=== PATIENT | female | born 1930 | race Caucasian/White ===

== ENCOUNTER 2016-09-12 18:17 | Inpatient (IN) | payer OTHER ==
--- NOTE | ~2016-09-12 | CR126 ---
[facility] A Service of [facility] RADIOLOGY TEXT RESULTS PATIENT: LETITIA CHAMORRO LOCATION: [facility] 303- : 30 UNIT #: [id number] AGE: [address]: Wiliam Rowland MD SEX: F ORDER DR: [id number] [facility] [address]. [place], [place] [address] [id number] I MR#: [id number] Acc #: [id number] NAME: LETITIA CHAMORRO : 1930 SEX: F STUDY DATE/TIME: 09/20/2016 19:23 UNIT: [address] ROOM: [facility] STUDY DESCRIPTION: CR Foot Complete Min 3 View Lt Attending Physician: Wiliam Rowland M.D. Ordering Physician: Wiliam Rowland M.D. Primary Care Physician: Amanda Llanes M.D. MEDICAL IMAGING REPORT This report is preliminary unless electronic signature is present EXAM Left foot 3 views HISTORY Foot pain after fall 3 days ago. FINDINGS 3 views of the left foot demonstrate a 1 cm linear bone fragment along the dorsal margin of the navicular seen on the lateral view, likely a cortical avulsion fracture. This is of uncertain age and could be recent and correlation with patient's symptoms in this location is recommended. No additional fracture. Mild degenerative changes at the first MTP joint. Mild generalized demineralization. Dictated by... Raul Sargent M.D. THIS IS AN ELECTRONICALLY VERIFIED REPORT Raul Sargent M.D. at 09/20/2016 10:48 PM DFL/pcl TD: 09/20/2016 21:40 JOB #: [id number] MEDICAL IMAGING REPORT Page 1 of 1 COPY
--- NOTE | ~2016-09-12 | CR72 ---
[facility] A Service of [facility] RADIOLOGY TEXT RESULTS PATIENT: LETITIA CHAMORRO LOCATION: [facility] 303- : 30 UNIT #: [id number] AGE: [address]: Wiliam Rowland MD SEX: F ORDER DR: [id number] [facility] [address]. [place], [place] [address] [id number] I MR#: [id number] Acc #: [id number] NAME: LETITIA CHAMORRO : 1930 SEX: F STUDY DATE/TIME: 09/14/2016 13:08 UNIT: [address] ROOM: [facility] STUDY DESCRIPTION: CR Chest Single View Portable Attending Physician: Wiliam Rowland M.D. Ordering Physician: Wiliam Rowland M.D. Primary Care Physician: Amanda Llanes M.D. MEDICAL IMAGING REPORT This report is preliminary unless electronic signature is present EXAM Chest, portable, 09/14/2016, 1308 hours. CLINICAL HISTORY 86-year-old woman with shortness of air and difficulty breathing for 2 days. History of CHF. COMPARISON 09/12/2016 FINDINGS Portable upright chest demonstrates stable cardiomegaly and pacer device. There is pulmonary venous distension and hazy opacity in the right hemithorax which I believe is related to posterior layering pleural fluid. Interstitial change in the left lung appears improved. There is minimal blunting of the left costophrenic sulcus unchanged. IMPRESSION 1. Stable cardiomegaly and pacer device. 2. There is mild pulmonary venous distension with overall decrease in perihilar interstitial change. There is moderate-sized right pleural effusion, likely unchanged when allowing for differences in positioning. There is trace blunting of the left costophrenic sulcus unchanged. Dictated by... Radha Polo M.D. THIS IS AN ELECTRONICALLY VERIFIED REPORT Radha Polo M.D. at 09/17/2016 9:23 AM SMM/tmw [facility] A Service of [facility] RADIOLOGY TEXT RESULTS PATIENT: LETITIA CHAMORRO LOCATION: [facility] 303-01 : 30 UNIT #: [id number] AGE: [address]: Wiliam Rowland MD SEX: F ORDER DR: TD: 09/14/2016 15:26 JOB #: [id number] MEDICAL IMAGING REPORT Page 1 of 1 COPY
--- NOTE | ~2016-09-12 | CR127 ---
[facility] A Service of [facility] RADIOLOGY TEXT RESULTS PATIENT: LETITIA CHAMORRO LOCATION: [facility] 303- : 30 UNIT #: [id number] AGE: [address]: Wiliam Rowland MD SEX: F ORDER DR: [id number] [facility] [address] [facility]. [place], [place] [address] [id number] I MR#: [id number] Acc #: [id number] NAME: LETITIA CHAMORRO : 1930 SEX: F STUDY DATE/TIME: 09/20/2016 19:22 UNIT: [address] ROOM: [facility] STUDY DESCRIPTION: CR Foot Complete Min 3 View Rt Attending Physician: Wiliam Rowland M.D. Ordering Physician: Wiliam Rowland M.D. Primary Care Physician: Amanda Llanes M.D. MEDICAL IMAGING REPORT This report is preliminary unless electronic signature is present EXAM Right foot, 3 views. HISTORY Bilateral foot pain after fall, 3 days ago. FINDINGS 3 views of the right foot demonstrate old healed fracture, midshaft fifth metatarsal. Probable additional old healed fractures at the neck of the third and fourth metatarsals. Mild generalized demineralization. No acute fracture. No dislocation. Small posterior and plantar calcaneal spurs. IMPRESSION 1. No acute findings. 2. Old healed fracture midshaft fifth metatarsal and probable subtle old healed fractures at the neck of the third and fourth metatarsals. Dictated by... Raul Sargent M.D. THIS IS AN ELECTRONICALLY VERIFIED REPORT Raul Sargent M.D. at 09/20/2016 10:48 PM ALISON/sandra TD: 09/20/2016 21:45 JOB #: [id number] MEDICAL IMAGING REPORT Page 1 of 1 COPY
--- NOTE | ~2016-09-12 | EKG ---
PATIENT: LETITIA CHAMORRO UNIT #: [id number] Ventricular Rate: 70 BPM Atrial Rate: 70 BPM QRS Duration: 148 ms Q-T Interval: 432 ms QTC Calculation(Bezet): 466 ms Calculated R [place]: -99 degrees Calculated T [place]: 76 degrees Diagnosis Line: Ventricular-paced rhythm Diagnosis Line: Abnormal ECG Diagnosis Line: When compared with ECG of 07-MAR-2015 19:56, Diagnosis Line: Vent. rate has increased BY 15 BPM Diagnosis Line: Confirmed by FIDELIA GAUTHIER MD ([id number]) on 09/13/2016 Diagnosis Line: 10:39:18 AM INTERPRETING MD: ABRAHAN NÚÑEZ
--- NOTE | ~2016-09-12 | DS ---
Unit #: [id number] #: [id number] Patient: LETITIA CHAMORRO [id number] [address] [address] [id number] I MR#: [id number] NAME: LETITIA CHAMORRO ROOM: 303 Age: 86 Sex: F Admission Date: 09/12/2016 : 1930 Discharge Date: Attending Physician: Wiliam Rowland M.D. Primary Care Physician: Amanda Llanes M.D. DISCHARGE SUMMARY SECOND ADDENDUM DISCHARGE MEDICATION RECONCILIATION 1. DuoNeb q.4 h. p.r.n. 2. Magnesium oxide 400 mg p.o. daily. 3. Coumadin 4 mg p.o. daily. 4. Loratadine 10 mg p.o. daily. 5. Lipitor 20 mg p.o. daily. 6. Norvasc 5 mg p.o. daily. 7. Metoprolol 25 mg p.o. b.i.d. 8. Docusate 100 mg p.o. b.i.d. 9. Lasix 40 mg p.o. b.i.d. 10. Lipitor 20 mg p.o. daily. 11. Protonix 40 mg p.o. daily. 12. Glimepiride 2 mg p.o. daily. 13. Tylenol 650 q.6 h. p.r.n. Dictated by... Tyra Sam/natividad TD: 09/25/2016 17:38 JOB #: [id number] DISCHARGE SUMMARY Page 1 of 1 X Wiliam Rowland MD X DISCHARGE SUMMARY
--- NOTE | ~2016-09-12 | CR72 ---
[facility] A Service of [facility] RADIOLOGY TEXT RESULTS PATIENT: LETITIA CHAMORRO LOCATION: [facility] [id number] : 30 UNIT #: [id number] AGE: [address]: Wiliam Rowland MD SEX: F ORDER DR: [id number] [facility] [address] [place], [place] [address] [id number] E MR#: [id number] Acc #: [id number] NAME: LETITIA CHAMORRO : 1930 SEX: F STUDY DATE/TIME: 09/12/2016 19:40 UNIT: [facility] ROOM: STUDY DESCRIPTION: CR Chest Single View Portable Attending Physician: Davidson Aguilar D.O. Ordering Physician: Ed Jean-Claude He M.D. Primary Care Physician: Amanda Llanes M.D. MEDICAL IMAGING REPORT This report is preliminary unless electronic signature is present EXAM Single view chest. INDICATIONS Shortness of air for 2 weeks. FINDINGS Single portable AP view of the chest compared to 03/09/2015. Heart and mediastinal contours are unchanged. There is mild interstitial edema. A fazvwoca-vq-hdekp right pleural effusion has developed. There is a small left pleural effusion which is unchanged. No pneumothorax. IMPRESSION 1. Moderate interstitial edema. 2. Development of a moderate to large right pleural effusion. 3. Decreased size of a small left pleural effusion. Dictated by... Ayad Burt M.D. THIS IS AN ELECTRONICALLY VERIFIED REPORT Ayad Burt M.D. at 09/12/2016 9:47 PM ALANNA/sandra TD: 09/12/2016 20:55 JOB #: [id number] MEDICAL IMAGING REPORT Page 1 of 1 COPY
--- NOTE | ~2016-09-12 | HP ---
Unit #: [id number] #: [id number] Patient: LETITIA CHAMORRO [id number] [address] [address] [id number] I MR#: [id number] NAME: LETITIA CHAMORRO ROOM: 303 Age: 86 Sex: F Admission Date: 09/12/2016 : 1930 Attending Physician: Wiliam Rowland M.D. Primary Care Physician: Amanda Llanes M.D. HISTORY AND PHYSICAL REASON FOR ADMISSION Shortness of breath. HISTORY OF PRESENT ILLNESS This is a very pleasant 86-year-old female with past medical history significant for chronic atrial fibrillation, chronic kidney disease and COPD, who presented to the emergency room with a few days history of progressive shortness of breath. The patient stated that she lives at home by herself and she is very independent. She drives still and she does not use any assistance when walking. For the last few weeks, she has been getting progressive shortness of breath but much so over the last few days. She denies any fever, chills, or night sweats. No productive cough of any colorful sputum. She denies any chest pain, nausea, vomiting or diarrhea. She stated that she is on diuretics at home and she is compliant. However, I am not sure if she is very compliant with her diet. The patient follows with Dr. Mendoza with cardiology as an outpatient. PAST MEDICAL HISTORY 1. Chronic atrial fibrillation. 2. Sick sinus syndrome. 3. Chronic kidney disease. 4. Obstructive sleep apnea, intolerance of CPAP. 5. Asthma. 6. Diabetes. 7. Hypertension. 8. Degenerative joint disease. PAST SURGICAL HISTORY 1. Open reduction internal fixation of the left radius after a fall. 2. Permanent pacemaker placement. HOME MEDICATIONS 1. Coumadin. 2. Norvasc. 3. Amaryl. 4. Claritin. 5. Zestril. 6. Atorvastatin. 7. Vitamin. 8. Metoprolol. Unit #: [id number] #: [id number] Patient: LETITIA CHAMORRO 9. Bumex. ALLERGIES 1. Codeine. 2. NSAIDs. SOCIAL HISTORY No history of alcohol, drug abuse or smoking. Again, she lives independent. FAMILY HISTORY None. REVIEW OF SYSTEMS Twelve points review of systems were obtained and were negative except for what was mentioned in the HPI. PHYSICAL EXAMINATION VITAL SIGNS: Temperature 98.1, respiratory rate 16, O2 saturation 96%. GENERAL: The patient is well developed in no acute distress. LUNGS: Decreased breath sounds bilaterally, mainly at the bases. HEART: S1, S2. Irregular rhythm. ABDOMEN: Soft, nontender. Bowel sounds positive. No hepatosplenomegaly. EXTREMITIES: +1 edema in the lower extremities. NEUROLOGIC: The patient is awake, alert, oriented x3. No focal motor/sensory deficit. SKIN: No rashes. DIAGNOSTIC STUDIES LABORATORY: Creatinine 1.4, potassium 1.5. IMAGING: Chest x-ray is consistent with pulmonary edema. ASSESSMENT 1. Acute hypoxic respiratory failure. 2. Cyvmq-gc-jbqaeyx diastolic congestive heart failure exacerbation. 3. Yrn-AJ-zprprklqu myocardial infarction. 4. Diabetes. 5. Morbid obesity. 6. Diabetes. PLAN 1. Patient's oxygen will be titrated down as tolerated to baseline which is room air. 2. Will continue IV Lasix per Cardiology but will monitor urine output very closely given her age. 3. Will continue physical therapy. Will add bronchodilator and mucolytics. 4. DVT prophylaxis. Unit #: [id number] #: [id number] Patient: LETITIA CHAMORRO Dictated by Micah Pantoja M.D. EA/bhaskar TD: 09/13/2016 16:30 JOB #: [id number] HISTORY AND PHYSICAL Page 1 of 1 X MICAH MCCOY MD X HISTORY AND PHYSICAL
--- NOTE | ~2016-09-12 | CR72 ---
[facility] A Service of [facility] RADIOLOGY TEXT RESULTS PATIENT: LETITIA CHAMORRO LOCATION: [facility] 303- : 30 UNIT #: [id number] AGE: [address]: Wiliam Rowland MD SEX: F ORDER DR: [id number] [facility] [address] [facility]. [place], [place] [address] [id number] I MR#: [id number] Acc #: [id number] NAME: LETITIA CHAMORRO : 1930 SEX: F STUDY DATE/TIME: 09/16/2016 16:42 UNIT: [address] ROOM: [facility] STUDY DESCRIPTION: CR Chest Single View Portable Attending Physician: Wiliam Rowland M.D. Ordering Physician: Wiliam Rowland M.D. Primary Care Physician: Amanda Llanes M.D. MEDICAL IMAGING REPORT This report is preliminary unless electronic signature is present EXAM Portable chest HISTORY Shortness of air, CHF, difficulty breathing for 4 days. FINDINGS Compared to 09/14/2016, mild vascular congestion has decreased and there has been partial clearing of the right mid and lower lung. Persistent small bilateral pleural effusions and persistent mild atelectasis in both bases. There has also been partial clearing of the right lung base. No new infiltrates. Dictated by... Raul Sargent M.D. THIS IS AN ELECTRONICALLY VERIFIED REPORT Raul Sargent M.D. at 09/16/2016 10:24 PM DFL/psc TD: 09/16/2016 19:05 JOB #: [id number] MEDICAL IMAGING REPORT Page 1 of 1 COPY
--- NOTE | ~2016-09-12 | CR63 ---
[facility] A Service of [facility] RADIOLOGY TEXT RESULTS PATIENT: LETITIA CHAMORRO LOCATION: [facility] : 30 UNIT #: [id number] AGE: [address]: Wiliam Rowland MD SEX: F ORDER DR: [id number] [facility] [address] [facility]. [place], [place] [address] [id number] I MR#: [id number] Acc #: [id number] NAME: LETITIA CHAMORRO : 1930 SEX: F STUDY DATE/TIME: 09/21/2016 11:21 [facility] STUDY DESCRIPTION: CR Chest 2 View Attending Physician: Wiliam Rowland M.D. Ordering Physician: Jaskaran Coy M.D. Primary Care Physician: Amanda Llanes M.D. MEDICAL IMAGING REPORT This report is preliminary unless electronic signature is present EXAM 2 views chest, 09/21/16. HISTORY Short of air. Began Saturday. Short of air with CHF. REPORT PA and lateral radiographs of the chest are presented. COMPARISON 09/16/16. FINDINGS Pacemaker unchanged. Stable cardiac enlargement. Worsening pulmonary vascular congestion. Increasing interstitial and airspace densities in the bilateral mid to lower lung zones. Xojjn-ex-hfgvaquj bilateral pleural effusions increased from prior study. Appearance most consistent with worsening cardiogenic pulmonary edema with interstitial airspace and pleural space components. No pneumothorax. No acute-appearing bony abnormality. Dictated by... Jim Guerrero M.D. THIS IS AN ELECTRONICALLY VERIFIED REPORT Jim Guerrero M.D. at 09/25/2016 4:56 PM ANGELICA/sandra TD: 09/21/2016 16:07 JOB #: [id number] [facility] A Service of [facility] RADIOLOGY TEXT RESULTS PATIENT: LETITIA CHAMORRO LOCATION: [facility] : 30 UNIT #: [id number] AGE: [address]: Wiliam Rowland MD SEX: F ORDER DR: MEDICAL IMAGING REPORT Page 1 of 1 COPY
--- NOTE | ~2016-09-12 | DS ---
Unit #: [id number] #: [id number] Patient: LETITIA CHAMORRO [id number] [address] [address] [id number] [place] MR#: [id number] NAME: LETITIA CHAMORRO ROOM: 303 Age: 86 Sex: F Admission Date: 09/12/2016 : 1930 Discharge Date: Attending Physician: Wiliam Rowland M.D. Primary Care Physician: Amanda Llanes M.D. DISCHARGE SUMMARY DISCHARGE DIAGNOSES 1. Chronic obstructive pulmonary disease exacerbation. 2. Congestive heart failure exacerbation. 3. Transudative pleural effusion, status post thoracentesis. 4. Chronic kidney disease likely. 5. Sick sinus syndrome. 6. Chronic atrial fibrillation. 7. Obstructive sleep apnea. 8. Diabetes mellitus. 9. Hypertension. HISTORY/HOSPITAL COURSE Patient was admitted with COPD and CHF exacerbation. Thoracentesis was done. She has been doing well and will be discharged to rehab. I saw her this morning. She denied any headache or blurry vision and no chest pain. PHYSICAL EXAMINATION VITAL SIGNS: Temperature 98, pulse 87, respirations 12, and blood pressure 138/68. NEUROLOGICAL: Awake, alert, and oriented, with no neurological deficits. HEENT: Pupils equal, round, and reactive to light and accommodation. Extraocular movements are intact. NECK: Supple. No JVD. CHEST: Bilateral air entry, bilateral mild rhonchi. GASTROINTESTINAL: Nontender and soft. Bowel sounds positive. EXTREMITIES: No edema. SKIN: No rashes and no ulcers. LYMPHATICS: No lymphadenopathy. DIAGNOSTIC STUDIES LABORATORY: Reviewed. IMAGING: Reviewed. DISCHARGE MEDICATIONS As per medication reconciliation. FOLLOWUP With me in two weeks in the office. CONDITION ON DISCHARGE Patient is hemodynamically stable at time of discharge. Dictated by... Unit #: [id number] #: [id number] Patient: LETITIA CHAMORRO Tyra Sam/jose TD: 09/18/2016 14:55 JOB #: [id number] DISCHARGE SUMMARY Page 1 of 1 X Wiliam Rowland MD X DISCHARGE SUMMARY
--- NOTE | ~2016-09-12 | DS ---
Unit #: [id number] #: [id number] Patient: LETITIA CHAMORRO [id number] [address] [address] [id number] I MR#: [id number] NAME: LETITIA CHAMORRO ROOM: 303 Age: 86 Sex: F Admission Date: 09/12/2016 : 1930 Discharge Date: Attending Physician: Wiliam Rowland M.D. Primary Care Physician: Amanda Llanes M.D. DISCHARGE SUMMARY ADDENDUM This is an addendum to already dictated discharge summary. The job number for the previous discharge summary is [id number]. Patient is currently being discharged with COPD exacerbation, CHF exacerbation and had foot fracture and has been stable during the hospital stay; will be discharged to Rehab and follow with Orthopedics, follow with Cardiology. Follow with me in two weeks in the office. Dictated by... Tyra Sam/natividad TD: 09/25/2016 16:33 JOB #: [id number] DISCHARGE SUMMARY Page 1 of 1 X Wiliam Rowland MD X DISCHARGE SUMMARY
--- NOTE | ~2016-09-12 | CO ---
Unit #: [id number] #: [id number] Patient: LETITIA CHAMORRO [id number] [address] [address] [id number] I MR#: [id number] NAME: LETITIA CHAMORRO ROOM: 303 Age: 86 Sex: F Admission Date: 09/12/2016 : 1930 Attending Physician: Wiliam Rowland M.D. Primary Care Physician: Amanda Llanes M.D. CONSULTATION REPORT CHIEF COMPLAINT Bilateral foot pain. HISTORY OF PRESENT ILLNESS Ms. Chamorro is an 86-year-old female, who has been admitted to the hospital on 09/13/2016 for shortness of breath. She sustained a fall in her hospital room approximately 3 days ago. She has been complaining of progressive bruising and pain in the bilateral feet with her ability to ambulate well independently. Orthopedic consultation has been requested for further evaluation. X-rays are available for review. The patient is seen lying comfortably in her hospital bed. She is complaining of pain in both feet, left greater than right. She states that she has pain with push-off essentially with ambulation. She believes when she fell, she struck her toes against the wall. PAST MEDICAL HISTORY 1. Atrial fibrillation. 2. Sick sinus syndrome. 3. Chronic renal insufficiency. 4. Sleep apnea. 5. Asthma. 6. Diabetes. 7. Hypertension. PAST SURGICAL HISTORY 1. ORIF of left distal radius fracture. 2. Pacemaker placement. MEDICATIONS Coumadin, Norvasc, Amaryl, Claritin, Zestril, atorvastatin, multivitamin, metoprolol, Bumex. ALLERGIES Codeine and NSAIDs. SOCIAL HISTORY The patient has no alcohol, tobacco, or drug use. She lives independently. FAMILY HISTORY Noncontributory to current illness. REVIEW OF SYSTEMS Ten systems are reviewed and positive for musculoskeletal complaints in Unit #: [id number] #: [id number] Patient: LETITIA CHAMORRO the toes and otherwise negative except for history shortness of breath improved throughout this hospitalization. PHYSICAL EXAMINATION GENERAL APPEARANCE: Age-appropriate appearing female, in no acute distress or discomfort. PSYCHIATRIC: Awake, alert, and oriented to person, place, time, and situation. CARDIAC: Irregularly irregular rhythm. PULMONARY: No increased work of breathing, symmetric chest rise. ABDOMEN: Nondistended. NEUROLOGIC: Intact sensation and motor function of both feet L4 through S1. SKIN: She has bruising notably over the fifth toe on the right and the great toe and fifth toe on the left. No evidence of open injury or laceration. VASCULAR: The bilateral feet are warm and well perfused with brisk capillary refill. MUSCULOSKELETAL: She is minimally tender over the dorsum of the midfoot on the left, not so on the right. She has tenderness over the areas of contusion at the digits. She has intact range of motion at the toes and ankle. LYMPHATICS: There is no lymphedema or lymphadenopathy. DIAGNOSTIC STUDIES IMAGING STUDIES: Plain film radiographs reviewed of the bilateral feet. These revealed possible avulsion fracture of the dorsum of the midfoot on the left. There is no evidence of any fracture of the phalanges or metatarsals. IMPRESSION An 86-year-old female with contusions to multiple digits in the bilateral feet after a fall. There is no evidence of fracture at the toes including the phalanges or metatarsals. There is a possible avulsion fracture in the mid foot on the left. PLAN She may weight bear as tolerated on bilateral lower extremities. She will be given order for postop shoe to see if this provides her any increased comfort as majority of her pain is with toe extension and during push-off. She may be ambulatory without the postop shoes, if she so chooses. She may be up as tolerated with physical therapy. Dictated by... Jordan Jones M.D. LON/lydia TD: 09/22/2016 14:26 JOB #: [id number] Unit #: [id number] #: [id number] Patient: LETITIA CHAMORRO CONSULTATION REPORT Page 1 of 1 X Jordan Jones MD CONSULTATION REPORT
--- NOTE | ~2016-09-12 | CO ---
Unit #: [id number] #: [id number] Patient: LETITIA CHAMORRO [id number] [address] [address] [id number] I MR#: [id number] NAME: LETITIA CHAMORRO ROOM: 303 Age: 86 Sex: F Admission Date: 09/12/2016 : 1930 Attending Physician: Wiliam Rowland M.D. Primary Care Physician: Amanda Llanes M.D. CONSULTATION REPORT SERVICE [facility]. CHIEF COMPLAINT Shortness of air. HISTORY OF PRESENT ILLNESS Ms. Chamorro is an 86-year-old white female who presents with complaints of a two week history of shortness of air. It has progressively worsened over the last two weeks. She is short of breath at rest and severely short of air with activity. Positive for dyspnea on exertion. She states just walking to the bathroom has become too much work. Although she denies orthopnea, she states that sometimes laying down actually helps it but then sometimes she has to sit up. Positive for edema. She states she has had lower extremity edema and noticing facial edema. She has been using what appears to be multidose inhalers and maybe a breathing machine, although it is kind of difficult to figure out what she is describing. No fevers. No chills. No productive cough. PAST MEDICAL HISTORY 1. Chronic atrial fibrillation. 2. Sick sinus syndrome with permanent pacemaker. 3. Chronic kidney disease. 4. Obstructive sleep apnea, intolerant to CPAP. 5. Asthma. 6. Diabetes mellitus. 7. Hypertension. 8. Degenerative joint disease. 9. Pneumonia in 2015. 10. CT in 2015 showed old lacunar infarcts. 11. Schatzki ring dilatation. PAST SURGICAL HISTORY 1. Open reduction fixation of the left radius after a fall. 2. Permanent pacemaker. SOCIAL HISTORY No tobacco. No alcohol. No drugs. The patient lives alone in a house. She is . She states she has one son left living and one grandson (1) . The patient states that she is on a waiting list for an elderly living arrangement and wants to sell her house. FAMILY HISTORY Unit #: [id number] #: [id number] Patient: ASHTYN,LETITIA Her mother at the age of 47 in an accident. Father was killed in the coal mines at age 21. Brother at six months of age from pneumonia. Her at the age of 47 from a [place]. She had two children. One is . ALLERGIES Codeine and NSAIDs. Codeine causes nausea. Also has listed aspirin and then adverse reaction to prednisone. HOME MEDICATION 1. Coumadin 4 mg daily. 2. Norvasc half a tab daily. 3. Amaryl 2 mg daily. 4. Claritin 10 mg daily. 5. Zestril half tab daily. 6. Atorvastatin 20 mg daily. 7. Vitamin D 50,000 units weekly. 8. Metoprolol 25 mg twice daily. 9. Bumex 1 mg twice daily. Historically in review of records, her Zestril dose was 40 mg and her Norvasc dose was 5 mg. REVIEW OF SYSTEMS Negative for fever. Negative for chills. SKIN: No rash, ulcers or wounds. HEAD: No headache. EYES: No vision changes. EARS: No hearing changes. Positive for hay fever symptoms. Positive for shortness of air and dyspnea on exertion. No chest pain. Positive for complaints of edema. No hematuria. No dysuria. No melena. No bright red bleeding per rectum. NEUROLOGIC: No seizures. No dizziness. No recent falls. PHYSICAL EXAMINATION GENERAL APPEARANCE: Well-developed, well-nourished, elderly white female in bed in no acute distress. VITAL SIGNS: Temp 98.2. Pulse 70. Respiration 16. Blood pressure 133/46. Height 5'1". Weight 91 kg. HEENT: Normocephalic, atraumatic. No xanthelasma. Pupils equal, round and reactive to light. Extraocular movements intact. Jugular mildly full. CVP 7 to 8. LUNGS: Crackles in the right base. Inspiratory wheeze in the left base, anteriorly clear. CARDIOVASCULAR: S1, S2. No S3, S4. A 2/6 holosystolic murmur. No lift. PMI nondisplaced. ABDOMEN: Obese, soft, nontender, nondistended. GENITOURINARY: Arellano cath to bedside drainage with strong urine output. EXTREMITIES: No clubbing, cyanosis or edema, 2+ pulses bilaterally. NEUROLOGIC: Speech is clear and appropriate. No facial drooping. DIAGNOSTIC STUDIES LABORATORY: Sodium 138, potassium 5.0, chloride 108, CO2 26, BUN 39, creatinine 1.4, glucose 128, AST 27, ALT 35, total protein 7.2, albumin 3.5. Troponin 0.05, 0.05. BNP 1,025. PT 25.2, INR 2.3, PTT 35.6. Point Unit #: [id number] #: [id number] [facility] troponin less than 0.05. Hemoglobin 9.4, hematocrit 30.7, WBC count 7.8, platelet count 240. IMAGING: Chest x-ray: Moderate interstitial edema, development of a moderate to large right pleural effusion. Decreased size of small left pleural effusion. CARDIOVASCULAR: A 12-lead EKG shows ventricularly paced rhythm at 70. Monitor remains paced. ASSESSMENT 1. Acute congestive heart failure with moderate to large right pleural effusion. History of 2-D echocardiogram, 02/27/2015, with EF 50 to 55%, pseudonormalization, right atrium mild to moderately dilated, mild mitral regurgitation as well as moderate tricuspid regurgitation. We will obtain a repeat echocardiogram. Troponin is negative x3. 2. Anemia. 3. Chronic AFib with paced rhythm, therapeutic INR. 4. Chronic kidney disease. 5. Obstructive sleep apnea, intolerant to CPAP. 6. Diabetes. 7. Hypertension. 8. Degenerative joint disease. PLAN We will add Lasix 40 mg IV daily and continue to follow. Dr. Jo to follow for any further recommendations. Dictated by... Oscar BritoPFranciaRArabella. for Shravan Jo M.D. MAXINE/payton TD: 09/13/2016 10:18 JOB #: [id number] CONSULTATION REPORT Page 1 of 1 X X CONSULTATION REPORT
[~2016-09-12 18:17] MED LIST: ACETAMINOPHEN PO; ACTOS; ADVAIR 1001 DISK W/D; ALBUTEROL SULF8.5 G1 IH; ALBUTEROL17 GM; AMARYL PO; AMLODIPINE; AMLODIPINE BESYL5 MG PO; AMLODIPINE PO; CALCIUM + VITAM1 TAB PO; CARVEDILOL6.25 MG PO; CENTRUM SILVER PO; CLARITIN10 M3 PO; COREG6.25 MG PO; COUMADIN2.5 MG PO; FERROUS SULFATE; FUROSEMIDE40 MG PO; GLIMEPIRIDE2 MG PO; GLUCOTROL; HUMIBID-LA600 MG PO; LEVAQUIN750 MG PO; LIPITOR; LIPITOR20 MG PO; METFORMIN HCL500 M1 PO; METOPROLOL TAR25 MG PO; NEURONTIN300 MG PO; NEXIUM; NORVASC; PREDNISONE1 MG; PRILOSEC; PRINIVIL20 M1 PO; PRINIVIL40 MG PO; PROAIR HFA8.5 GM IH; PROAIR HFA8.5 GM INH; PROBIOTIC1 EAC1 PO; SIMVASTATIN20 MG PO; SINGULAIR; SOF-LAX100 MG PO; SYMBICORT 160/4.6 G1 IH; SYMBICORT INH; TOPROL XL 50 MG50 MG PO; TRIAMCINOLONE AC1 GM EXT; UNKNOWN MED; VICODIN PO; VITAMIN C500 M7 PO; ZESTORETIC 20/21 TAB; ZESTRIL40 MG PO; ZOCOR PO
[2016-09-12] MEDS ORDERED: COUMADIN4 MG PO (19:44)
[2016-09-12] MEDS ORDERED: AMLODIPINE BESYL5 MG PO (19:44)
[2016-09-12] MEDS ORDERED: CLARITIN10 M3 PO (19:45)
[2016-09-12] MEDS ORDERED: ZESTRIL40 MG PO (19:45)
[2016-09-12] MEDS ORDERED: AMARYL2 MG PO (19:45)
[2016-09-12] MEDS ORDERED: VITAMIN D250000 UNIT PO (19:46)
[2016-09-12] MEDS ORDERED: METOPROLOL TAR25 MG PO (19:46)
[2016-09-12] MEDS ORDERED: ATORVASTATIN CA20 MG PO (19:46)
[2016-09-12] MEDS ORDERED: BUMEX1 MG PO (19:47)
[2016-09-12 19:52] LABS: BASOPHIL# 0.1 X10e3 (0-0.3); BASOPHIL% 1.1 % (0-2.5); EOSINOPHIL# 0.1 X10e3 (0-0.7); HEMATOCRIT 30.7 % (35.0-45.0); HEMOGLOBIN 9.4 gm/dL (12.0-16.0); LYMPHOCYTE# 0.9 X10e3 (1.0-3.5); LYMPHOCYTE% 11.5 % (17.0-45.0); MEAN CELL VOLUME 84.8 FL (83-96); MEAN CORPUSCULAR HEMOGLOBIN 25.9 PG (28-34); MEAN CORPUSCULAR HGB CONC 30.5 g/dL (30-36); MEAN PLATELET VOLUME 8.4 FL (6.5-11.5); MONOCYTE% 12.4 % (3.0-12.0); NEUTROPHIL# 5.8 X10e3 (1.5-7.1); PLATELET COUNT 240 X10e3 (140-420); RED BLOOD COUNT 3.62 X10e (3.90-5.30); RED CELL DISTRIBUTION WIDTH 16.7 % (11.0-15.5); WHITE BLOOD COUNT 7.8 X10e3 (4.0-10.5)
[2016-09-12 19:55] LABS: POC - CKMB 5.1 ng/mL (0.0-7.9); POC - TROPONIN <0.05 ng/mL (<=0.05)
[2016-09-12 19:55] LABS: DIFF IND NO
[2016-09-12 20:05] LABS: INR 2.3; PARTIAL THROMBOPLASTIN TIME 35.6 SECONDS (23.5-31.3); PROTHROMBIN TIME (PATIENT) 25.2 SECONDS (9.6-11.5)
[2016-09-12 20:13] LABS: ALBUMIN SERUM 3.5 g/dL (3.5-5.0); BILIRUBIN, DIRECT 0.1 mg/dL (0.0-0.2); BILIRUBIN,INDIRECT 0.7 mg/dL (0.0-0.9); BILIRUBIN,TOTAL 0.8 mg/dL (0.2-2.0); BUN/CREATININE RATIO 27.85; CREATININE SERUM 1.4 mg/dL (0.6-1.4); GLOM FILT RATE Estimated 33.9 mL/min (>60); PROTEIN TOTAL SERUM 7.2 g/dL (6.0-8.3)
[2016-09-13 12:32] LABS: PROTHROMBIN TIME (PATIENT) 21.2 SECONDS (9.6-11.5)
[2016-09-14 05:44] LABS: HEMATOCRIT 30.8 % (35.0-45.0); HEMOGLOBIN 9.3 gm/dL (12.0-16.0); MEAN CELL VOLUME 85.3 FL (83-96); MEAN CORPUSCULAR HEMOGLOBIN 25.9 PG (28-34); MEAN CORPUSCULAR HGB CONC 30.3 g/dL (30-36); MEAN PLATELET VOLUME 8.4 FL (6.5-11.5); RED BLOOD COUNT 3.61 X10e (3.90-5.30); RED CELL DISTRIBUTION WIDTH 16.3 % (11.0-15.5)
[2016-09-14 06:12] LABS: INR 1.8; PROTHROMBIN TIME (PATIENT) 19.4 SECONDS (9.6-11.5)
[2016-09-14 06:49] LABS: BUN/CREATININE RATIO 20.62; CALCIUM SERUM 8.7 mg/dL (8.4-10.2); CREATININE SERUM 1.6 mg/dL (0.6-1.4); GLOM FILT RATE Estimated 28.9 mL/min (>60); POTASSIUM 4.6 mmol/L (3.5-5.1)
[2016-09-14 10:37] LABS: ARTERIAL BLD GAS O2 SATURATION 94.3 % (90.0-100.0); ARTERIAL BLOOD GAS CARBOXY HB 1.4 %sat (0.0-9.0); ARTERIAL BLOOD GAS HCO3 33.3 mmol/L; ARTERIAL BLOOD GAS MET HB 0.7 %sat (0.0-2.0); ARTERIAL BLOOD GAS PO2 81.9 mmHg (80.0-100); ARTERIAL BLOOD GAS pH 7.273 (7.350-7.450)
[2016-09-14 10:41] LABS: ARTERIAL BLOOD GAS PCO2 72.1 mmHg (35.0-45.0); ARTERIAL DRAW? YES
[2016-09-14 10:42] LABS: ARTERIAL BLOOD GAS ALLEN TEST NORMAL; ARTERIAL BLOOD GAS ART SITE RIGHT RADIAL; ARTERIAL BLOOD GAS DELIVERY NASAL CANNULA
[2016-09-14 12:23] LABS: ARTERIAL BLD GAS O2 SATURATION 96.4 % (90.0-100.0); ARTERIAL BLOOD GAS CARBOXY HB 1.3 %sat (0.0-9.0); ARTERIAL BLOOD GAS HCO3 35.3 mmol/L; ARTERIAL BLOOD GAS MET HB 0.7 %sat (0.0-2.0); ARTERIAL BLOOD GAS pH 7.306 (7.350-7.450)
[2016-09-14 12:26] LABS: ARTERIAL BLOOD GAS ALLEN TEST NORMAL; ARTERIAL BLOOD GAS ART SITE RIGHT RADIAL; ARTERIAL BLOOD GAS DELIVERY BIPAP 14/4; ARTERIAL DRAW? YES
[2016-09-14 14:10] LABS: INR 1.8; PROTHROMBIN TIME (PATIENT) 19.4 SECONDS (9.6-11.5)
[2016-09-15 09:46] LABS: HEMATOCRIT 28.6 % (35.0-45.0); HEMOGLOBIN 8.8 gm/dL (12.0-16.0); MEAN CELL VOLUME 84.9 FL (83-96); MEAN CORPUSCULAR HGB CONC 30.6 g/dL (30-36); MEAN PLATELET VOLUME 8.9 FL (6.5-11.5); RED BLOOD COUNT 3.37 X10e (3.90-5.30); RED CELL DISTRIBUTION WIDTH 16.3 % (11.0-15.5); WHITE BLOOD COUNT 4.8 X10e3 (4.0-10.5)
[2016-09-15 09:56] LABS: INR 1.2; PROTHROMBIN TIME (PATIENT) 12.2 SECONDS (9.6-11.5)
[2016-09-15 10:04] LABS: ALBUMIN SERUM 3.1 g/dL (3.5-5.0); BILIRUBIN,TOTAL 0.5 mg/dL (0.2-2.0); BUN/CREATININE RATIO 21.87; CALCIUM SERUM 8.7 mg/dL (8.4-10.2); CREATININE SERUM 1.6 mg/dL (0.6-1.4); GLOM FILT RATE Estimated 28.9 mL/min (>60); POTASSIUM 4.6 mmol/L (3.5-5.1); PROTEIN TOTAL SERUM 6.8 g/dL (6.0-8.3)
[2016-09-16 07:16] LABS: HEMATOCRIT 30.3 % (35.0-45.0); HEMOGLOBIN 9.3 gm/dL (12.0-16.0); MEAN CELL VOLUME 84.4 FL (83-96); MEAN CORPUSCULAR HGB CONC 30.8 g/dL (30-36); MEAN PLATELET VOLUME 10.1 FL (6.5-11.5); RED BLOOD COUNT 3.59 X10e (3.90-5.30); RED CELL DISTRIBUTION WIDTH 16.3 % (11.0-15.5)
[2016-09-16 08:03] LABS: WHITE BLOOD COUNT 11.7 X10e3 (4.0-10.5)
[2016-09-16 09:22] LABS: INR 1.1; PROTHROMBIN TIME (PATIENT) 11.3 SECONDS (9.6-11.5)
[2016-09-16 16:58] LABS: BF TOTAL NUCLEATED CELL COUNT 423 CMM (0-100); BODY FLUID APPEARANCE BLOODY; BODY FLUID RBC 22542 CMM; BODY FLUID SOURCE PLEURAL
[2016-09-16 17:00] LABS: PROTEIN, BODY FLUID 3.1 gm/dL
[2016-09-17 06:29] LABS: PROTHROMBIN TIME (PATIENT) 10.9 SECONDS (9.6-11.5)
[2016-09-17 07:32] LABS: ALBUMIN SERUM 3.1 g/dL (3.5-5.0); BILIRUBIN,TOTAL 0.4 mg/dL (0.2-2.0); BUN/CREATININE RATIO 31.66; CALCIUM SERUM 8.7 mg/dL (8.4-10.2); CREATININE SERUM 1.8 mg/dL (0.6-1.4); PROTEIN TOTAL SERUM 6.2 g/dL (6.0-8.3)
[2016-09-17 09:25] LABS: HEMATOCRIT 30.6 % (35.0-45.0); HEMOGLOBIN 9.3 gm/dL (12.0-16.0); LYMPHOCYTE# 0.2 X10e3 (1.0-3.5); LYMPHOCYTE% 1.7 % (17.0-45.0); MEAN CELL VOLUME 85.6 FL (83-96); MEAN CORPUSCULAR HEMOGLOBIN 25.9 PG (28-34); MEAN CORPUSCULAR HGB CONC 30.2 g/dL (30-36); MEAN PLATELET VOLUME 9.2 FL (6.5-11.5); MONOCYTE# 0.5 X10e3 (0-1.0); MONOCYTE% 4.3 % (3.0-12.0); NEUTROPHIL# 10.5 X10e3 (1.5-7.1); PLATELET COUNT 200 X10e3 (140-420); RED BLOOD COUNT 3.58 X10e (3.90-5.30); RED CELL DISTRIBUTION WIDTH 16.6 % (11.0-15.5); WHITE BLOOD COUNT 11.2 X10e3 (4.0-10.5)
[2016-09-17 09:26] LABS: DIFF IND NO
[2016-09-18 05:27] LABS: HEMATOCRIT 30.7 % (35.0-45.0); HEMOGLOBIN 9.4 gm/dL (12.0-16.0); MEAN CELL VOLUME 83.7 FL (83-96); MEAN CORPUSCULAR HEMOGLOBIN 25.6 PG (28-34); MEAN CORPUSCULAR HGB CONC 30.6 g/dL (30-36); MEAN PLATELET VOLUME 8.9 FL (6.5-11.5); RED BLOOD COUNT 3.66 X10e (3.90-5.30); RED CELL DISTRIBUTION WIDTH 16.8 % (11.0-15.5); WHITE BLOOD COUNT 11.7 X10e3 (4.0-10.5)
[2016-09-18 05:48] LABS: PROTHROMBIN TIME (PATIENT) 10.7 SECONDS (9.6-11.5)
[2016-09-18 07:16] LABS: BUN/CREATININE RATIO 39.33; CALCIUM SERUM 8.8 mg/dL (8.4-10.2); CREATININE SERUM 1.5 mg/dL (0.6-1.4); GLOM FILT RATE Estimated 31.2 mL/min (>60); POTASSIUM 5.1 mmol/L (3.5-5.1)
[2016-09-19 04:26] LABS: PROTHROMBIN TIME (PATIENT) 10.7 SECONDS (9.6-11.5)
[2016-09-19 04:54] LABS: BUN/CREATININE RATIO 39.41; CALCIUM SERUM 8.6 mg/dL (8.4-10.2); CREATININE SERUM 1.7 mg/dL (0.6-1.4); GLOM FILT RATE Estimated 26.8 mL/min (>60); POTASSIUM 5.2 mmol/L (3.5-5.1)
[2016-09-20 08:01] LABS: HEMATOCRIT 29.9 % (35.0-45.0); HEMOGLOBIN 9.2 gm/dL (12.0-16.0); MEAN CELL VOLUME 84.1 FL (83-96); MEAN CORPUSCULAR HEMOGLOBIN 25.8 PG (28-34); MEAN CORPUSCULAR HGB CONC 30.7 g/dL (30-36); MEAN PLATELET VOLUME 9.4 FL (6.5-11.5); RED BLOOD COUNT 3.55 X10e (3.90-5.30); RED CELL DISTRIBUTION WIDTH 16.5 % (11.0-15.5); WHITE BLOOD COUNT 10.4 X10e3 (4.0-10.5)
[2016-09-20 09:09] LABS: CALCIUM SERUM 8.6 mg/dL (8.4-10.2); CREATININE SERUM 1.8 mg/dL (0.6-1.4)
[2016-09-21 07:59] LABS: BUN/CREATININE RATIO 41.25; CALCIUM SERUM 8.4 mg/dL (8.4-10.2); CREATININE SERUM 1.6 mg/dL (0.6-1.4); GLOM FILT RATE Estimated 28.9 mL/min (>60); MAGNESIUM 2.3 mg/dL (1.6-3.0); POTASSIUM 5.2 mmol/L (3.5-5.1)
[2016-09-21 11:47] LABS: INR 1.5
[2016-09-22 05:57] LABS: HEMATOCRIT 29.2 % (35.0-45.0); HEMOGLOBIN 9.1 gm/dL (12.0-16.0); MEAN CELL VOLUME 83.8 FL (83-96); MEAN CORPUSCULAR HGB CONC 31.1 g/dL (30-36); MEAN PLATELET VOLUME 9.4 FL (6.5-11.5); RED BLOOD COUNT 3.48 X10e (3.90-5.30); RED CELL DISTRIBUTION WIDTH 16.2 % (11.0-15.5); WHITE BLOOD COUNT 10.1 X10e3 (4.0-10.5)
[2016-09-22 06:14] LABS: INR 1.9; PROTHROMBIN TIME (PATIENT) 20.3 SECONDS (9.6-11.5)
[2016-09-22 06:44] LABS: ALBUMIN SERUM 2.8 g/dL (3.5-5.0); BILIRUBIN,TOTAL 0.6 mg/dL (0.2-2.0); BUN/CREATININE RATIO 36.42; CALCIUM SERUM 8.5 mg/dL (8.4-10.2); CREATININE SERUM 1.4 mg/dL (0.6-1.4); GLOM FILT RATE Estimated 33.9 mL/min (>60); PROTEIN TOTAL SERUM 5.7 g/dL (6.0-8.3)
[2016-09-22 07:09] LABS: POTASSIUM 5.8 mmol/L (3.5-5.1)
[2016-09-23 04:31] LABS: MEAN CELL VOLUME 83.8 FL (83-96); MEAN PLATELET VOLUME 9.9 FL (6.5-11.5); RED BLOOD COUNT 3.45 X10e (3.90-5.30); RED CELL DISTRIBUTION WIDTH 16.2 % (11.0-15.5); WHITE BLOOD COUNT 9.1 X10e3 (4.0-10.5)
[2016-09-23 04:49] LABS: INR 2.3; PROTHROMBIN TIME (PATIENT) 24.9 SECONDS (9.6-11.5)
[2016-09-23 04:52] LABS: BUN/CREATININE RATIO 28.57; CALCIUM SERUM 8.3 mg/dL (8.4-10.2); CREATININE SERUM 1.4 mg/dL (0.6-1.4); GLOM FILT RATE Estimated 33.9 mL/min (>60); POTASSIUM 4.5 mmol/L (3.5-5.1)
[2016-09-24 06:14] LABS: INR 3.1; PROTHROMBIN TIME (PATIENT) 34.3 SECONDS (9.6-11.5)
[2016-09-25 04:35] LABS: INR 3.5; PROTHROMBIN TIME (PATIENT) 38.2 SECONDS (9.6-11.5)
== END 2016-09-25 18:06 | DRG 291 ==
LOC: CED 18:17 → CEDOF 21:18 → C3A PCU 21:18 → CED 21:42 → CEDOF 21:42 → C3A PCU 21:42 → CEDOF 09-13 02:29 → C3A PCU 09-13 02:29
PROVIDERS: Emergency Medicine; Internal Medicine; Internal Medicine Cardiovascular Disease; Internal Medicine Interventional Cardiology; Nurse Practitioner
PROC: B24BYZZ Ultrasonography of Heart with Aorta using Other Contrast (ICD-10-PCS; 2016-09-13)
PROC: 30233L1 Transfusion of Nonautologous Fresh Plasma into Peripheral Vein, Percutaneous Approach (ICD-10-PCS; principal; 2016-09-15)
PROC: 30233K1 Transfusion of Nonautologous Frozen Plasma into Peripheral Vein, Percutaneous Approach (ICD-10-PCS; 2016-09-15)
DX: I13.0 Hypertensive heart and chronic kidney disease with heart failure and stage 1 through stage 4 chronic kidney disease, or unspecified chronic kidney disease (principal); J96.01 Acute respiratory failure with hypoxia; E66.01 Morbid (severe) obesity due to excess calories; E11.22 Type 2 diabetes mellitus with diabetic chronic kidney disease; J44.1 Chronic obstructive pulmonary disease with (acute) exacerbation; I27.2 Other secondary pulmonary hypertension; I50.43 Acute on chronic combined systolic (congestive) and diastolic (congestive) heart failure; D64.9 Anemia, unspecified; N18.9 Chronic kidney disease, unspecified; G47.33 Obstructive sleep apnea (adult) (pediatric); J45.909 Unspecified asthma, uncomplicated; M19.90 Unspecified osteoarthritis, unspecified site; Z79.01 Long term (current) use of anticoagulants; Z79.84 Long term (current) use of oral hypoglycemic drugs; Z95.0 Presence of cardiac pacemaker; Z68.34 Body mass index [BMI] 34.0-34.9, adult; S92.252A Displaced fracture of navicular [scaphoid] of left foot, initial encounter for closed fracture
CPT/HCPCS: 36415; 36600; 51702; 71010; 71020; 73630; 80048; 80053; 80076; 82553; 82803; 82947; 83605; 83615; 83735; 83880; 84132; 84157; 84484; 85025; 85027; 85610; 85730; 86900; 86901; 87070; 87205; 89051; 93005; 93306; 94640; 94660; 94760; 96374; 97110; 97116; 97162; 97163; 97166; 97530; 97535; 99285; G8978-GP; G8979-GP; G8987-GO; G8988-GO; J0610; J1650; J1815; J1940; J2930; J3430; P9059

== ENCOUNTER 2016-10-11 01:46 | Inpatient (IN) | payer OTHER ==
--- NOTE | ~2016-10-11 | DS ---
Unit #: [id number] #: [id number] Patient: LETITIA CHAMORRO [id number] [facility] [address] [facility]. [place], [place] [address] [id number] I MR#: [id number] NAME: LETITIA CHAMORRO ROOM: 232 Age: 86 Sex: F Admission Date: 10/11/2016 : 1930 Discharge Date: 10/15/2016 Attending Physician: Lefty Lam M.D. Primary Care Physician: Amanda Llanes M.D. DISCHARGE SUMMARY HOSPITAL COURSE This 86-year-old patient was admitted to [facility] with shortness of air. Details are as per admission H and P. The patient was treated for acute on chronic respiratory failure, COPD, CHF and chronic kidney disease. The patient also had obstructive sleep apnea syndrome, hypertension, type 2 diabetes mellitus. The patient was seen by other specialists in consultation, but the patient's condition did not improve. Due to deterioration in the patient's condition, after discussing with the patient's family, it was decided to keep the patient comfortable. The patient peacefully on 10/15/2016 at 2225 hours. The plan was discussed with the patient's family, who showed completed understanding. Dictated by... Tyra Flores/renee TD: 10/20/2016 12:43 JOB #: [id number] DISCHARGE SUMMARY Page 1 of 1 X Lefty Lam MD X DISCHARGE SUMMARY
--- NOTE | ~2016-10-11 | EKG ---
PATIENT: LETITIA CHAMORRO UNIT #: [id number] Ventricular Rate: 62 BPM Atrial Rate: 58 BPM QRS Duration: 148 ms Q-T Interval: 476 ms QTC Calculation(Bezet): 483 ms Calculated R [place]: 170 degrees Calculated T [place]: 93 degrees Diagnosis Line: Ventricular-paced rhythm Diagnosis Line: Underlying rhythm is atrial fibrillation Diagnosis Line: Abnormal ECG Diagnosis Line: When compared with ECG of 11-OCT-2016 02:17, Diagnosis Line: (unconfirmed) Diagnosis Line: No change Diagnosis Line: Confirmed by LORRI HUERTA MD ([id number]) on Diagnosis Line: 10/12/2016 3:55:07 PM INTERPRETING MD: LEONELA
--- NOTE | ~2016-10-11 | HP ---
Unit #: [id number] #: [id number] Patient: LETITIA CHAMORRO [address] [facility]. [place], [place] [address] [id number] I MR#: [id number] NAME: LETITIA CHAMORRO ROOM: 462 Age: 86 Sex: F Admission Date: 10/11/2016 : 1930 Attending Physician: Sumaya Ferreira M.D. Primary Care Physician: Amanda Llanes M.D. HISTORY AND PHYSICAL CHIEF COMPLAINT Fall, acute on chronic kidney disease, acute on chronic anemia. HISTORY This 86-year-old female with sick sinus syndrome, status post permanent pacemaker, anticoagulated with AODM, hypertension, chronic respiratory failure, is admitted following a fall. The patient was recently admitted to this facility 09/13 through 09/25/2016 for COPD exacerbation and exacerbation of congestive heart failure. She underwent a thoracentesis for pleural effusion which reveled transudative fluid. An echo was performed although I do not have results. She was sent to [facility] for rehab. The patient was discharged three days ago to home, has really been unable to ambulate without assistance at home. Yesterday, when attempting to ambulate by herself, she fell. Family had to lift her and put her back in bed. Was somewhat somnolent afterwards. At 1:00 this morning, she rolled out of bed, knocked her oxygen off. She was unconscious, had skin tears, and had some shaking of her arms. EMS reports that her room air O2 sat was only about 50%. She was brought to this emergency department where she is a bit more short of breath than usual. In the course of her evaluation, blood pressure is 107/31. She is noted to be more anemic than usual with a hematocrit of 23, down from hematocrit of 29 two and a half weeks ago. Has heme negative brown stolon exam. Chest x-ray is abnormal but is unchanged from before. The patient has multiple skin tears over her arms which have been bandaged by the nurses in the ER. The patient denies much of a cough with the above. Does complain of right chest pain since falling. PAST MEDICAL HISTORY 1. Recent admission in June for COPD exacerbation, congestive heart failure exacerbation, transudative pleural effusion requiring thoracentesis. 2. Schatzki's ring which was dilated. 3. Chronic kidney disease with previous creatinine about 1.4 to 1.6. 4. Obstructive sleep apnea. 5. Asthma/COPD, on chronic oxygen. 6. AODM. 7. Sick sinus syndrome/atrial fibrillation for which the patient is anticoagulated with Coumadin. Previous echo showed an ejection fraction of 50% to 55% with mild MR, moderate TR. However, patient did have a recent echo about three weeks ago but I do not have results. 8. Hypertension. 9. Prior lacunar infarcts seen on CT scan. Unit #: [id number] #: [id number] Patient: LETITIA CHAMORRO 10. DJD. 11. Cataract extraction. 12. ORIF left distal radius fracture. 13. Colonoscopy 07/2012 revealing two small polyps in the ascending colon which were snared. 14. Rare diverticula along with internal hemorrhoids noted. ALLERGIES Codeine, nonsteroidal anti-inflammatory drugs. HOME MEDICATIONS 1. Coumadin 1 mg q. h.s. 2. Norvasc 5 mg daily. 3. Amaryl 2 mg daily. 4. Claritin 2 mg daily. 5. Lopressor 25 mg b.i.d. 6. Magnesium 400 mg daily. 7. Amaryl 2 mg daily. 8. Colace 100 mg b.i.d. 9. Lasix 40 mg b.i.d. 10. Iron tablet daily. 11. Lipitor 40 mg q. h.s. 12. P.r.n. Duo-Nebs. 13. Oxygen, about 4 L per nasal cannula. FAMILY HISTORY Noncontributory given patient's age. SOCIAL HISTORY The patient lives along but her gikriggw-ex-emv is staying with her to help her out. However, the patient really is not able to ambulate on her own. She is a lifelong nonsmoker, does not drink alcohol. REVIEW OF SYSTEMS Difficult to obtain as patient, herself is a poor historian. Most of the history was obtained by family. PHYSICAL EXAMINATION GENERAL APPEARANCE: Pleasant, pale, 86-year-old female who currently is in no acute distress. VITAL SIGNS: Temperature has not yet been obtained. Pulse 67, respirations 20, blood pressure 107/31. O2 saturation is currently 95% on 6 L Oxymizer. HEENT: Eyes PERRLA. Extraocular muscles are intact. Pharynx is benign. NECK: Supple without adenopathy or thyromegaly. CHEST: A few scattered wheezes, mainly some rhonchi and some crackles. CARDIAC: Normal S1 and S2. Soft systolic murmur. ABDOMEN: Bowel sounds are present. No hepatosplenomegaly, tenderness or masses. EXTREMITIES: Without edema. Skin tear is noted over the arms, particularly the right arm, which were bandaged by the nurses in the ER. NEUROLOGIC EXAM: The patient is awake, alert. Cranial nerves are intact. She has equal strength throughout. Needs help to sit up. DIAGNOSTIC STUDIES LABORATORY: Admission labs - hematocrit is 23, down from 29 two and a half weeks ago. Normal MCV, white count and platelet count. One band noted. INR 1.8, PTT 32.1. Unit #: [id number] #: [id number] Patient: LETITIA CHAMORRO SMA-12 - glucose 258, BUN 37, creatinine 2.1, up from a creatinine of 1.4 two and a half weeks ago. Chloride is 94, CO2 43, albumin is 3. BNP is 747. CARDIOVASCULAR: EKG shows a ventricular paced rhythm, rate 62. IMAGING: Head CT - no acute disease. Chest x-ray is unchanged, shows mild cardiomegaly. Small bilateral pleural effusions, atelectasis and right lung infiltrate. Again, this is unchanged per the radiologist. X-rays of the left wrist negative. ASSESSMENT 1. Patient rolled out of bed, was unconscious initially with hypoxia after her oxygen fell off: She also fell yesterday when attempting to get up on her own. 2. Skin tears over the arms. 3. Acute on chronic normocytic anemia: Heme negative brown stool. 4. Acute on chronic kidney disease. 5. History of congestive heart failure: Patient had a recent echo performed but details are unknown. 6. Acute on chronic respiratory failure. 7. Sick sinus syndrome/atrial fibrillation for which the patient is anticoagulated. 8. Asthma/chronic obstructive pulmonary disease, on home oxygen. 9. Obstructive sleep apnea. 10. Hypertension with somewhat low blood pressure currently. 11. Adult onset diabetes mellitus. PLANS 1. Transfuse one unit of packed red blood cells. Will give IV Lasix, Duo-Nebs. 2. Anemia workup. 3. Hold Norvasc. 4. Social work to see for possible placement. 5. Wound nurse to see. 6. Obtain prior echo report. 7. Obtain urinalysis. 8. Patient's oval or circular glass cutter to see. 9. Patient is a DNR. 10. Obtain cardiac enzymes. Dictated by Tyra Hughes/gris TD: 10/11/2016 06:51 JOB #: [id number] CC: Tyra Hinds Unit #: [id number] #: [id number] Patient: ASHTYNLETITIA HISTORY AND PHYSICAL Page 1 of 1 X Sumaya Ferreira MD X HISTORY AND PHYSICAL
--- NOTE | ~2016-10-11 | CT71 ---
[facility] A Service of [facility] RADIOLOGY TEXT RESULTS PATIENT: LETITIA CHAMORRO LOCATION: CICCU2 CICCU06-05 : 30 UNIT #: [id number] AGE: [address]: Lefty Lam MD SEX: F ORDER DR: [id number] [facility] [address] [facility]. [place], [place] [address] [id number] I MR#: [id number] Acc #: [id number] NAME: LETITIA CHAMORRO : 1930 SEX: F STUDY DATE/TIME: 10/11/2016 3:33 UNIT: CEDOF ROOM: 62092 STUDY DESCRIPTION: CT Head Wo Contrast Attending Physician: Sumaya Ferreira M.D. Ordering Physician: Rob Chery M.D. Primary Care Physician: Amanda Llanes M.D. MEDICAL IMAGING REPORT This report is preliminary unless electronic signature is present EXAM CT scan of the head without contrast INDICATION Fell out of bed today with trauma to the left side of head and left-sided pain. COMPARISON 03/08/2015. FINDINGS Axial noncontrast images were obtained from the skull base to the vertex. This CT examination was performed with one or more of the following radiation dose reduction techniques: automatic exposure control, adjustment of mA and/or kV according to patient size, and iterative reconstruction. Ventricular size and configuration are normal. There is no evidence of acute infarct or hemorrhage. There are no extra-axial fluid collections. No mass lesion or mass effect is seen. There are no skull fractures. IMPRESSION Normal noncontrast head CT. Dictated by... Garth Rueda M.D. THIS IS AN ELECTRONICALLY VERIFIED REPORT Garth Rueda M.D. at 10/11/2016 1:21 PM PETER/christ TD: 10/11/2016 06:14 JOB #: [id number] [facility] A Service of [facility] RADIOLOGY TEXT RESULTS PATIENT: LETITIA CHAMORRO LOCATION: CICCU2 CICCU06-05 : 30 UNIT #: [id number] AGE: [address]: Lefty Lam MD SEX: F ORDER DR: MEDICAL IMAGING REPORT Page 1 of 1 COPY
--- NOTE | ~2016-10-11 | CR72 ---
[facility] A Service of [facility] RADIOLOGY TEXT RESULTS PATIENT: LETITIA CHAMORRO LOCATION: [facility] : 30 UNIT #: [id number] AGE: [address]: Lefty Lam MD SEX: F ORDER DR: [id number] [facility] [address] [facility]. [place], [place] [address] [id number] I MR#: [id number] Acc #: [id number] NAME: LETITIA CHAMORRO : 1930 SEX: F STUDY DATE/TIME: 10/13/2016 5:46 UNIT: [facility] ROOM: [facility] STUDY DESCRIPTION: CR Chest Single View Portable Attending Physician: Lefty Lam M.D. Ordering Physician: Lefty Lam M.D. Primary Care Physician: Amanda Llanes M.D. MEDICAL IMAGING REPORT This report is preliminary unless electronic signature is present EXAM Portable AP view of the chest. COMPARISON October 11, 2016, and September 21, 2016. INDICATIONS 86-year-old female with dyspnea, low oxygen saturation and chest pain for 2 days. FINDINGS Multilead left chest pacemaker device appears stable. No evidence of pneumothorax. There are grossly stable small bilateral pleural effusions with increased interstitial and alveolar opacities throughout the lungs. Heart size is top normal and this may reflect pulmonary edema. Correlation to exclude signs of pneumonia are recommended. IMPRESSION Top normal heart size with stable small bilateral pleural effusions and increased interstitial and alveolar opacities throughout the lungs. Findings suggestive of pulmonary edema. Correlation to exclude signs of pneumonia recommended. Dictated by... Quan Cervantes M.D. THIS IS AN ELECTRONICALLY VERIFIED REPORT Quan Cervantes M.D. at 10/17/2016 12:17 PM SHAMEKA/reji TD: 10/13/2016 09:19 JOB #: [id number] [facility] A Service of [facility] RADIOLOGY TEXT RESULTS PATIENT: LETITIA CHAMORRO LOCATION: [facility] : 30 UNIT #: [id number] AGE: [address]: Lefty Lam MD SEX: F ORDER DR: MEDICAL IMAGING REPORT Page 1 of 1 COPY
--- NOTE | ~2016-10-11 | CR281 ---
[facility] A Service of [facility] RADIOLOGY TEXT RESULTS PATIENT: LETITIA CHAMORRO LOCATION: CEDOF [id number] : 30 UNIT #: [id number] AGE: [address]: Sumaya Ferreira MD SEX: F ORDER DR: [id number] [facility] [address] [facility]. [place], [place] [address] [id number] MR#: [id number] Acc #: [id number] NAME: LETITIA CHAMORRO : 1930 SEX: F STUDY DATE/TIME: 10/11/2016 2:37 UNIT: [facility] ROOM: STUDY DESCRIPTION: CR Wrist Min 3 View Lt Attending Physician: Tyler Chery Ordering Physician: Ed Jean-Claude He M.D. Primary Care Physician: Amanda Llanes M.D. MEDICAL IMAGING REPORT This report is preliminary unless electronic signature is present EXAM Left wrist INDICATION Left wrist pain with open wound on left wrist after fall today. FINDINGS 3 views of the left wrist were obtained. There is a metal plate in the distal radius. There is no evidence of acute injury. There is no dislocation. IMPRESSION Prior surgery involving the distal radius. No acute abnormalities. Dictated by... Garth Rueda M.D. THIS IS AN ELECTRONICALLY VERIFIED REPORT Garth Rueda M.D. at 10/11/2016 5:56 AM PETER/vilma TD: 10/11/2016 05:19 JOB #: [id number] MEDICAL IMAGING REPORT Page 1 of 1 COPY
--- NOTE | ~2016-10-11 | CO ---
Unit #: [id number] #: [id number] Patient: LETITIA CHAMORRO [id number] [address] [address] [id number] I MR#: [id number] NAME: LETITIA CHAMORRO ROOM: 462 Age: 86 Sex: F Admission Date: 10/11/2016 : 1930 Attending Physician: Lefty Lam M.D. Primary Care Physician: Amanda Llanes M.D. Consultation Date: 10/11/2016 CONSULTATION REPORT REASON FOR CONSULT Respiratory failure. HISTORY OF PRESENT ILLNESS This is a very pleasant, 86-year-old, female who is well known to our service from previous admission with history of sick sinus syndrome status post permanent pacemaker, anticoagulated with diabetes, hypertension and chronic hypoxic respiratory failure who presented to the emergency room after she fell at the retirement. The patient was admitted recently to our facility and was discharged at the end of August 2016, after an admission for COPD exacerbation and congestive heart failure exacerbation also. The patient was recovering at the rehab until yesterday night when she fell. The patient stated to me that she was trying to roll herself out of bed when she fell and knocked her head. The patient was unconscious at some point and she had some skin tear. Her oxygen was off and when the EMS arrived, her oxygen saturation was in the 50% level. The patient also was noted to be anemic with hemoglobin of 6.9 and baseline of 9. The patient currently is lethargic but she arouses to verbal stimuli, however, she falls asleep quickly. A STAT ABG was obtained by me and it showed acute on chronic hypercarbic hypoxic respiratory failure. PAST MEDICAL HISTORY 1. Questionable COPD. 2. Congestive heart failure. 3. Schatzki's ring. 4. Chronic kidney disease. 5. Obstructive sleep apnea. 6. Diabetes. 7. Sick sinus syndrome. 8. AFib. 9. Hypertension. PAST SURGICAL HISTORY 1. ORIF. 2. Cataract extraction. 3. Colonoscopy. SOCIAL HISTORY The patient lives alone but her dykfevrz-bg-epa is staying with her to help her out. The patient currently is unable to ambulate on her own; Unit #: [id number] #: [id number] Patient: LETITIA CHAMORRO however, she was very independent before last admission. The patient is a lifelong nonsmoker. No history of alcoholism. FAMILY HISTORY Noncontributory. ALLERGIES Codeine and NSAIDs. HOME MEDICATION 1. Coumadin. 2. Norvasc. 3. Amaryl. 4. Claritin. 5. Lopressor. 6. Magnesium. 7. Latex. 8. Iron. 9. Oxygen four liters. REVIEW OF SYSTEMS Unable to obtain from the patient as she is very lethargic. PHYSICAL EXAMINATION GENERAL APPEARANCE: The patient is pale and weak. VITAL SIGNS: Blood pressure 110/61. Respiratory rate 16. O2 saturation 94%. HEENT: Atraumatic, normocephalic with small laceration on her left eyebrow. NECK: Supple. No JVD. No lymphadenopathy. CHEST: Decreased breath sounds bilaterally. HEART: S1. No murmur, gallops or rubs. ABDOMEN: Soft, nontender. Bowel sounds positive. No hepatosplenomegaly. EXTREMITIES: Trace edema in the lower extremity. CENTRAL NERVOUS SYSTEM: The patient is lethargic but she arouses to verbal stimuli. No focal motor/sensory deficit. SKIN: Multiple lacerations on the left eyebrow, right arm. DIAGNOSTIC STUDIES LABORATORY: A STAT ABG showed a pH of 7.24, CO2 of 106, creatinine 2.1, potassium 4.2, chloride 94, CO2 43. WBC count 7.7, hemoglobin 6.9. IMAGING: Chest x-ray is showing bilateral infiltrate but it is stable from last admission. ASSESSMENT 1. Acute on chronic hypoxic hypercarbic respiratory failure. 2. Status post fall. 3. Chronic diastolic congestive heart failure. 4. AFib/sick sinus syndrome. 5. Diabetes. 6. Hypertension. PLAN 1. The patient will be transferred to ICU to be placed on BiPAP. We will reassess blood gas in one hour to determine if she needs ventilatory support. Creatinine is worsening but chest x-ray is consistent with congestive heart failure. I would suggest to herminio Unit #: [id number] #: [id number] Patient: LETITIA CHAMORRO the patient gently and watch urine output and kidney function. Renal eval will be very appropriate. 2. We will watch off antibiotics but she needs very close observation. 3. Physical therapy. 4. We will keep n.p.o. while she is on BiPAP. 5. We will hold Coumadin until further anemia workup is obtained. 6. We will hold Amaryl due to very low GFR. I would like to thank you for allowing me to be part of this patient's care. Critical care time spent on this patient was 35 minutes. Dictated by... Tyra Salamanca TD: 10/11/2016 11:29 JOB #: [id number] CONSULTATION REPORT Page 1 of 1 X MICAH MCCOY MD X CONSULTATION REPORT
--- NOTE | ~2016-10-11 | CO ---
Unit #: [id number] #: [id number] Patient: LETITIA CHAMORRO [id number] [address] [place], [place] [address] [id number] MR#: [id number] NAME: LETITIA CHAMORRO ROOM: [facility] Age: 86 Sex: F Admission Date: 10/11/2016 : 1930 Attending Physician: Lefty Lam M.D. Primary Care Physician: Amanda Llanes M.D. Consultation Date: 10/11/2016 CONSULTATION REPORT REASON FOR CONSULTATION Elevated creatinine level. HISTORY OF PRESENT ILLNESS The patient is an 86-year-old white female with a recent history of sick sinus syndrome, needing permanent pacemaker placement; history of hypertension; history of type 2 diabetes; history of COPD with several admissions and transfer to unit with a pH of 7.2, creatinine of 2.3, and a pCO2 of 100 on ABG on room air. The patient has now been placed on BiPAP. The patient was noted to have a hemoglobin of 6.9 on admission. The patient's baseline creatinine level seemed to be 1.6 to 1.8 in the last year. The patient does not seem to have any previous renal evaluations. There is previous history of congestive heart failure and pleural effusion with need for thoracenteses noted to be a transudative fluid and ejection fraction is not available in the system. PAST MEDICAL HISTORY Significant for COPD, CHF with possible underlying right heart failure, history of chronic kidney disease with baseline creatinine 1.4 to 1.7, history of Schatzki ring, obstructive sleep apnea, asthma, COPD, sick sinus syndrome. According to H and P, ejection fraction 50% to 55% with moderate mitral and tricuspid regurgitation, history of hypertension, history of lacunar infarcts on CT scan. PAST SURGICAL HISTORY Significant for ORIF of left distal radius fracture, colonoscopy in 2012 with polyps. ALLERGIES Codeine. HOME MEDICATIONS Include Coumadin, Norvasc, Amaryl, Lopressor, magnesium, Colace, Lasix, and Lipitor. FAMILY HISTORY Unremarkable for end-stage renal disease. SOCIAL HISTORY The patient lives at home, is not very mobile. REVIEW OF SYSTEMS Not reliably available. Unit #: [id number] #: [id number] Patient: LETITIA CHAMORRO PHYSICAL EXAMINATION GENERAL: The patient is awake, alert, and on BiPAP, somewhat labored respirations. VITAL SIGNS: Blood pressure is 107/60, pulse is 67 per minute, saturation 95%. HEENT: Head is atraumatic. Extraocular movements are intact. NECK: Has elevated JVD. Supple. CHEST: Clear with decreased air entry in the bases. HEART: S1, S2 audible. There is no S3, no S4. ABDOMEN: Soft. There is no organomegaly, no guarding, no rigidity, no rebound tenderness. EXTREMITIES: There is 1+ edema. [employer]: Motor system seems intact. DIAGNOSTIC STUDIES LABORATORY RESULTS: WBC on admission is 7.7 with a hemoglobin 6.9, hematocrit 23, and platelets 250. BNP is 747. Sodium is 144, potassium is 4.2, chloride is 94, CO2 is 43, BUN is 37, creatinine is 2.1. Glucose was 258, calcium is 8.6. The albumin is 3.0, the ferritin is 120, the iron is 32 with a saturation of 11%. B12 is 313 with a folate of 22.1. The ABG; pH 7.2, pCO2 of 106, PO2 of 82, saturation 95. IMPRESSION 1. 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 I will diurese her and keep her on the volume depleted side. Expect renal function to stabilize as her cardiopulmonary hemodynamics improve. No current need for dialysis. We will increase the Lasix to 40 mg q.8 hours. 2. Respiratory acidosis. 3. Metabolic alkalosis compensating for underlying respiratory acidosis. 4. Chronic obstructive pulmonary disease. 5. Quantitate proteinuria and check urinalysis possible underlying hypertensive nephrosclerosis, diabetic nephropathy with stage 3 chronic kidney disease. We will follow the patient with you. Dictated by... Tanvir Pantoja M.D. RA/lydia TD: 10/14/2016 03:11 JOB #: [id number] CONSULTATION REPORT Page 1 of 1 X Tanvir Pantoja MD CONSULTATION REPORT
--- NOTE | ~2016-10-11 | CR72 ---
[facility] A Service of [facility] & [facility] RADIOLOGY TEXT RESULTS PATIENT: LETITIA CHAMORRO LOCATION: [facility] : 30 UNIT #: [id number] AGE: [address]: Lefty Lam MD SEX: F ORDER DR: [id number] [facility] [address] [place], [place] [address] [id number] MR#: [id number] Acc #: [id number] NAME: LETITIA CHAMORRO : 1930 SEX: F STUDY DATE/TIME: 10/11/2016 2:36 UNIT: [facility] ROOM: STUDY DESCRIPTION: CR Chest Single View Portable Attending Physician: Rob Chery M.D. Ordering Physician: Ed Doctor [id number] [facility] Primary Care Physician: Amanda Llanes M.D. MEDICAL IMAGING REPORT This report is preliminary unless electronic signature is present EXAM Portable chest 10/11/2016 INDICATION Low oxygen saturations, chest pain, shortness of air today. COMPARISON 09/21/2016. FINDINGS This portable view of the chest shows mild cardiomegaly. There are small bilateral effusions, bibasilar atelectasis and there is some faint right mid lung infiltrate. The findings are similar to the previous study. A pacemaker is in good position. Dictated by... Garth Rueda M.D. THIS IS AN ELECTRONICALLY VERIFIED REPORT Garth Rueda M.D. at 10/11/2016 1:21 PM PETER/christ TD: 10/11/2016 05:56 JOB #: [id number] MEDICAL IMAGING REPORT Page 1 of 1 COPY
[~2016-10-11 01:46] MED LIST changes: +AMARYL2 MG PO; +ATORVASTATIN CA20 MG PO; +BUMEX1 MG PO; +COUMADIN4 MG PO; +VITAMIN D250000 UNIT PO
[2016-10-11] MEDS ORDERED: MAGNESIUM400 M1 PO (02:00)
[2016-10-11] MEDS ORDERED: AMARYL2 MG PO (02:02)
[2016-10-11] MEDS ORDERED: FERRO-TIME325 MG PO (02:03)
[2016-10-11] MEDS ORDERED: LASIX PO (02:03)
[2016-10-11] MEDS ORDERED: DOCUSATE SODIU100 MG PO (02:03)
[2016-10-11] MEDS ORDERED: LIPITOR40 MG PO (02:03)
[2016-10-11] MEDS ORDERED: COUMADIN1 MG PO (02:03)
[2016-10-11 03:38] LABS: BASOPHIL% 0.5 % (0-2.5); EOSINOPHIL# 0.1 X10e3 (0-0.7); EOSINOPHIL% 1.8 % (0.0-7.0); LYMPHOCYTE# 0.6 X10e3 (1.0-3.5); LYMPHOCYTE% 8.3 % (17.0-45.0); MEAN CELL VOLUME 85.5 FL (83-96); MEAN CORPUSCULAR HEMOGLOBIN 25.7 PG (28-34); MEAN CORPUSCULAR HGB CONC 30.1 g/dL (30-36); MEAN PLATELET VOLUME 8.4 FL (6.5-11.5); MONOCYTE# 1.1 X10e3 (0-1.0); MONOCYTE% 13.9 % (3.0-12.0); NEUTROPHIL# 5.8 X10e3 (1.5-7.1); NEUTROPHIL% 75.5 % (40-75); PLATELET COUNT 250 X10e3 (140-420); RED BLOOD COUNT 2.69 X10e (3.90-5.30); RED CELL DISTRIBUTION WIDTH 17.5 % (11.0-15.5); WHITE BLOOD COUNT 7.7 X10e3 (4.0-10.5)
[2016-10-11 03:43] LABS: DIFF IND YES; HEMOGLOBIN 6.9 gm/dL (12.0-16.0)
[2016-10-11 04:01] LABS: INR 1.8; PARTIAL THROMBOPLASTIN TIME 32.1 SECONDS (23.5-31.3); PROTHROMBIN TIME (PATIENT) 19.3 SECONDS (10.0-11.7)
[2016-10-11 04:03] LABS: ANISOCYTOSIS MOD; PLATELET ESTIMATE NORMAL (NORMAL)
[2016-10-11 04:04] LABS: MICROCYTOSIS SL; OVALOCYTES PRESENT; POIKILOCYTOSIS SL
[2016-10-11 04:05] LABS: STOMATOCYTE PRESENT
[2016-10-11 04:09] LABS: BILIRUBIN, DIRECT 0.1 mg/dL (0.0-0.2); BILIRUBIN,INDIRECT 0.5 mg/dL (0.0-0.9); BILIRUBIN,TOTAL 0.6 mg/dL (0.2-2.0); BUN/CREATININE RATIO 17.61; CALCIUM SERUM 8.6 mg/dL (8.4-10.2); CREATININE SERUM 2.1 mg/dL (0.6-1.4); GLOM FILT RATE Estimated 20.8 mL/min (>60); POTASSIUM 4.2 mmol/L (3.5-5.1); PROTEIN TOTAL SERUM 6.5 g/dL (6.0-8.3)
[2016-10-11 05:52] LABS: POC - CKMB <1.0 ng/mL (0.0-7.9); POC - TROPONIN <0.05 ng/mL (<=0.05)
[2016-10-11 07:11] LABS: FOLATE (FOLIC ACID) 22.1 ng/mL (>5.8)
[2016-10-11 08:42] LABS: URINE SOURCE CLEAN CATCH
[2016-10-11 08:53] LABS: URINE APPEARANCE CLOUDY; URINE BILIRUBIN NEG (NEG); URINE BLOOD TRACE (NEG); URINE COLOR DK YELLOW; URINE GLUCOSE NEG (NEG); URINE KETONE NEG (NEG); URINE LEUKOCYTE ESTERASE 2+ (NEG); URINE NITRATE NEG (NEG); URINE PROTEIN 1+ (NEG); URINE SPECIFIC GRAVITY 1.017 (1.003-1.035)
[2016-10-11 08:54] LABS: CULTURE INDICATED? YES; URINE BACTERIA AUWI 4+ (NEGATIVE); URINE SQUAMOUS EPITHELIAL CELL NONE SEEN /[HPF]; UWBCS1 AUWI 25-50 (0-5)
[2016-10-11 09:14] LABS: URINE AMORPHOUS SEDIMENT AMORP URATES
[2016-10-11 09:15] LABS: URINE YEAST PRESENT
[2016-10-11 09:16] LABS: AMPHETAMINE NEG (NEG); BARBITURATES NEG (NEG); BENZODIAZEPINES NEG (NEG); COCAINE NEG (NEG); MARIJUANA NEG (NEG); OPIATES NEG (NEG); TRICYCLIC ANTIDEPRESSANTS NEG (NEG); U METHADONE NEG (NEG)
[2016-10-11 10:12] LABS: ARTERIAL BLOOD GAS pH 7.248 (7.350-7.450)
[2016-10-11 10:13] LABS: ARTERIAL BLD GAS O2 SATURATION 95.3 % (90.0-100.0); ARTERIAL BLOOD GAS ALLEN TEST NORMAL; ARTERIAL BLOOD GAS ART SITE RIGHT RADIAL; ARTERIAL BLOOD GAS CARBOXY HB 1.5 %sat (0.0-9.0); ARTERIAL BLOOD GAS DELIVERY OXYMIZER; ARTERIAL BLOOD GAS HCO3 46.3 mmol/L; ARTERIAL BLOOD GAS MET HB 0.9 %sat (0.0-2.0); ARTERIAL BLOOD GAS PO2 82.7 mmHg (80.0-100); ARTERIAL DRAW? YES
[2016-10-11 13:03] LABS: ARTERIAL BLOOD GAS pH 7.337 (7.350-7.450)
[2016-10-11 13:06] LABS: ARTERIAL BLOOD GAS PCO2 87.8 mmHg (35.0-45.0)
[2016-10-11 13:07] LABS: ARTERIAL BLOOD GAS ALLEN TEST NORMAL; ARTERIAL BLOOD GAS ART SITE LEFT RADIAL; ARTERIAL BLOOD GAS CARBOXY HB 1.6 %sat (0.0-9.0); ARTERIAL BLOOD GAS MET HB 0.8 %sat (0.0-2.0); ARTERIAL BLOOD GAS PO2 71.2 mmHg (80.0-100); ARTERIAL DRAW? YES
[2016-10-11 13:08] LABS: ARTERIAL BLOOD GAS DELIVERY BIPAP 14/5
[2016-10-11 14:37] LABS: BASOPHIL% 0.7 % (0-2.5); EOSINOPHIL# 0.2 X10e3 (0-0.7); EOSINOPHIL% 2.4 % (0.0-7.0); HEMATOCRIT 27.3 % (35.0-45.0); HEMOGLOBIN 8.4 gm/dL (12.0-16.0); LYMPHOCYTE# 0.9 X10e3 (1.0-3.5); MEAN CELL VOLUME 85.7 FL (83-96); MEAN CORPUSCULAR HEMOGLOBIN 26.2 PG (28-34); MEAN CORPUSCULAR HGB CONC 30.6 g/dL (30-36); MEAN PLATELET VOLUME 8.7 FL (6.5-11.5); MONOCYTE% 14.9 % (3.0-12.0); NEUTROPHIL# 4.4 X10e3 (1.5-7.1); PLATELET COUNT 242 X10e3 (140-420); RED BLOOD COUNT 3.18 X10e (3.90-5.30); RED CELL DISTRIBUTION WIDTH 17.7 % (11.0-15.5); WHITE BLOOD COUNT 6.4 X10e3 (4.0-10.5)
[2016-10-11 14:40] LABS: DIFF IND NO
[2016-10-11 14:56] LABS: CK TOTAL 27 IU/L (26-140)
[2016-10-12 05:20] LABS: BASOPHIL% 0.4 % (0-2.5); EOSINOPHIL# 0.3 X10e3 (0-0.7); EOSINOPHIL% 3.8 % (0.0-7.0); HEMATOCRIT 25.8 % (35.0-45.0); LYMPHOCYTE# 0.8 X10e3 (1.0-3.5); LYMPHOCYTE% 12.2 % (17.0-45.0); MEAN CELL VOLUME 84.9 FL (83-96); MEAN CORPUSCULAR HEMOGLOBIN 26.2 PG (28-34); MEAN CORPUSCULAR HGB CONC 30.9 g/dL (30-36); MEAN PLATELET VOLUME 8.6 FL (6.5-11.5); MONOCYTE# 1.2 X10e3 (0-1.0); MONOCYTE% 17.2 % (3.0-12.0); NEUTROPHIL# 4.5 X10e3 (1.5-7.1); NEUTROPHIL% 66.4 % (40-75); PLATELET COUNT 218 X10e3 (140-420); RED BLOOD COUNT 3.04 X10e (3.90-5.30); RED CELL DISTRIBUTION WIDTH 17.6 % (11.0-15.5); WHITE BLOOD COUNT 6.7 X10e3 (4.0-10.5)
[2016-10-12 05:26] LABS: DIFF IND NO
[2016-10-12 05:33] LABS: INR 1.5; PROTHROMBIN TIME (PATIENT) 16.7 SECONDS (10.0-11.7)
[2016-10-12 06:53] LABS: BUN/CREATININE RATIO 17.27; CALCIUM SERUM 8.7 mg/dL (8.4-10.2); CREATININE SERUM 2.2 mg/dL (0.6-1.4); GLOM FILT RATE Estimated 19.7 mL/min (>60); POTASSIUM 4.5 mmol/L (3.5-5.1)
[2016-10-12 16:07] LABS: MAGNESIUM 2.1 mg/dL (1.6-3.0)
[2016-10-13 06:31] LABS: HEMATOCRIT 31.1 % (35.0-45.0); HEMOGLOBIN 9.4 gm/dL (12.0-16.0); MEAN CELL VOLUME 87.7 FL (83-96); MEAN CORPUSCULAR HEMOGLOBIN 26.4 PG (28-34); MEAN CORPUSCULAR HGB CONC 30.1 g/dL (30-36); MEAN PLATELET VOLUME 9.5 FL (6.5-11.5); RED BLOOD COUNT 3.55 X10e (3.90-5.30); RED CELL DISTRIBUTION WIDTH 18.4 % (11.0-15.5)
[2016-10-13 07:14] LABS: BUN/CREATININE RATIO 18.42; CALCIUM SERUM 8.9 mg/dL (8.4-10.2); CREATININE SERUM 1.9 mg/dL (0.6-1.4); GLOM FILT RATE Estimated 23.5 mL/min (>60); MAGNESIUM 2.1 mg/dL (1.6-3.0); POTASSIUM 4.6 mmol/L (3.5-5.1)
[2016-10-13 09:20] LABS: INR 1.3; PROTHROMBIN TIME (PATIENT) 14.1 SECONDS (10.0-11.7)
[2016-10-14 04:35] LABS: SPE A1GLOB (PNL) 0.5 g/dL (0.2-0.3); SPE A2GLOB (PNL) 0.8 g/dL (0.5-0.9); SPE ALB (PNL) 2.9 g/dL (3.8-4.8); SPE BETA 1 GLOBULIN 0.5 g/dL (0.4-0.6); SPE BETA 2 GLOBULIN 0.4 g/dL (0.2-0.5); SPE GAMMA (PNL) 1.1 g/dL (0.8-1.7); SPETP (PNL) 6.1 g/dL (6.1-8.1)
[2016-10-15 04:44] LABS: INR 1.3; PROTHROMBIN TIME (PATIENT) 14.4 SECONDS (10.0-11.7)
== END 2016-10-15 23:56 | disposition expired | DRG 189 ==
LOC: CED 01:46 → CEDOF 05:30 → CICCU2 05:30 → CEDOF 05:47 → CED 05:47 → C4C 06:21 → CEDOF 06:21 → C4C 08:24 → CICCU2 11:50 → C2A 10-15 17:10
PROVIDERS: Emergency Medicine; Internal Medicine; Internal Medicine Pulmonary Disease
PROC: 5A09457 Assistance with Respiratory Ventilation, 24-96 Consecutive Hours, Continuous Positive Airway Pressure (ICD-10-PCS; principal; 2016-10-11)
PROC: 30233N1 Transfusion of Nonautologous Red Blood Cells into Peripheral Vein, Percutaneous Approach (ICD-10-PCS; 2016-10-11)
DX: J96.22 Acute and chronic respiratory failure with hypercapnia (principal); N17.9 Acute kidney failure, unspecified; E87.4 Mixed disorder of acid-base balance; I08.1 Rheumatic disorders of both mitral and tricuspid valves; E11.22 Type 2 diabetes mellitus with diabetic chronic kidney disease; K22.2 Esophageal obstruction; I13.0 Hypertensive heart and chronic kidney disease with heart failure and stage 1 through stage 4 chronic kidney disease, or unspecified chronic kidney disease; I50.32 Chronic diastolic (congestive) heart failure; N39.0 Urinary tract infection, site not specified; R07.9 Chest pain, unspecified; Z95.0 Presence of cardiac pacemaker; Z79.01 Long term (current) use of anticoagulants; Z79.84 Long term (current) use of oral hypoglycemic drugs; Z99.81 Dependence on supplemental oxygen; G47.33 Obstructive sleep apnea (adult) (pediatric); J44.9 Chronic obstructive pulmonary disease, unspecified; M19.90 Unspecified osteoarthritis, unspecified site; Z98.49 Cataract extraction status, unspecified eye; W19.XXXA Unspecified fall, initial encounter; J96.21 Acute and chronic respiratory failure with hypoxia; N18.3 Chronic kidney disease, stage 3 (moderate); D63.1 Anemia in chronic kidney disease; I48.91 Unspecified atrial fibrillation; B96.1 Klebsiella pneumoniae [K. pneumoniae] as the cause of diseases classified elsewhere; R62.7 Adult failure to thrive; Z66 Do not resuscitate; Z68.32 Body mass index [BMI] 32.0-32.9, adult
CPT/HCPCS: 36415; 36600; 70450; 71010; 73110; 80048; 80076; 80307; 81003; 82550; 82553; 82570; 82607; 82728; 82746; 82803; 82947; 83540; 83550; 83735; 83880; 84156; 84165; 84300; 84484; 85025; 85027; 85610; 85730; 86850; 86900; 86901; 86923; 87070; 87086; 87088; 87186; 87205; 93005; 94640; 94660; 94760; 94761; 99285; J0696; J1815; J1940; J2060; J2270; P9016